=== PATIENT | male | born 1950 | race Caucasian/White ===

== ENCOUNTER → 2019-04-05 12:42 | Outpatient (CLI) | payer OTHER, SELFPAY ==
[2019-04-05 13:36] LABS: INR 4.3 (0.9-1.3); Prothrombin Time 51.6 SECONDS (10.1-12.7)
== END ==
PROVIDERS: Visit Provider Emergency Medicine
DX: I48.91 Unspecified atrial fibrillation (principal)
CPT/HCPCS: 36415; 85610

== ENCOUNTER → 2019-04-17 11:30 | Outpatient (CLI) | payer OTHER, SELFPAY ==
--- NOTE | 2019-04-17 11:33 | DI.RAD.S_ITS ---
PROCEDURE: XR LUMBAR SPINE 2-3V INDICATIONS: Lumbar pain x 2 days TECHNIQUE: 2 views of the lumbar spine were acquired. COMPARISON: None. FINDINGS: Bones: 5 [id number] vertebrae are present. 4 millimeter anterolisthesis of L4 and L5, likely related to facet arthrosis. There is mild multilevel disc height loss with marginal osteophyte formation, as well as facet arthrosis most apparent at L3-4, L4-5, and L5-S1. Soft tissues: Overlying bowel gas pattern is normal. Vascular calcification of the abdominal aorta. IMPRESSION: Multilevel lumbar spondylosis without findings of acute lumbar injury. 4 mm anterolisthesis of L4 on L5 likely secondary to hypertrophic facet arthrosis. Dictated by: Lucio Manning M.D. on 04/17/2019 at 12:02 Approved by: Lucio Manning M.D. on 04/17/2019 at 12:05
[2019-04-17 12:34] LABS: Add Manual Diff / Slide Review NO; Basophils Absolute Auto 0 /uL (0-100); Basophils Percent Auto 0.3 % (0-2); Eosinophils Absolute Auto 100 /uL (0-450); Eosinophils Percent Auto 0.6 % (2-4); Hematocrit 47.1 % (41-53); Hemoglobin 16.2 g/dL (13.5-17.5); Lymphocytes Absolute Auto 1600 /uL (1100-4500); Mean Corpuscular HGB Conc 34.5 % (30-36); Mean Corpuscular Hemoglobin 31.6 PG (26-34); Mean Corpuscular Volume 91.4 fL (80-100); Monocytes Absolute Auto 1500 /uL (0-900); Monocytes Percent Auto 13.7 % (3-14); Neutrophils Absolute Auto 7500 /uL (1500-7000); Neutrophils Percent Auto 70.4 % (50-75); Platelet Count 218 X10^3/uL (150-400); Red Blood Cell Count 5.15 X10^6/uL (4.5-5.9); Red Cell Distribution Width 13.8 % (11.6-14.8); White Blood Cell Count 10.7 X10^3/uL (4.5-11.0)
[2019-04-17 12:53] LABS: Carbon Dioxide 24 mmol/L (22-32); Sodium 137 mmol/L (137-145)
[2019-04-17 13:17] LABS: Alanine Aminotransferase 24 IU/L (21-72); Albumin 4.4 g/dL (3.5-5.0); Albumin Globulin Ratio 1.5 (1.0-2.8); Alkaline Phosphatase 66 U/L (38-126); Aspartate Aminotransferase 25 IU/L (17-59); BUN Creatinine Ratio 26.5 (6-22); Bilirubin Total 1.3 mg/dL (0.2-1.3); Blood Urea Nitrogen 45 mg/dL (9-20); C-Reactive Protein Quant 4.7 mg/dL (<1.0); Chloride 101 mmol/L (98-107); Glucose 113 mg/dL (80-110); Total Protein 7.4 g/dL (6.3-8.2); Uric Acid 6.3 mg/dL (3.5-8.5)
[2019-04-17 13:24] LABS: HEMOLYSIS < 15 (0-50); Potassium 5.2 mmol/L (3.4-5.1)
[2019-04-17 14:17] LABS: Erythrocyte Sedimentation Rate 6 MM/HR (0-15)
== END ==
PROVIDERS: Visit Provider Nurse Practitioner
DX: R53.83 Other fatigue (principal); M54.5 Low back pain
CPT/HCPCS: 36415; 72100; 80053; 84550; 85025; 85651; 86140

== ENCOUNTER → 2019-04-21 10:01 | Outpatient (CLI) | payer OTHER, SELFPAY ==
[2019-04-21 11:34] LABS: INR 4.2 (0.9-1.3); Prothrombin Time 50.3 SECONDS (10.1-12.7)
== END ==
PROVIDERS: Visit Provider Emergency Medicine
DX: I48.91 Unspecified atrial fibrillation (principal)
CPT/HCPCS: 36415; 85610

== ENCOUNTER → 2019-05-13 14:04 | Outpatient (CLI) | payer OTHER, SELFPAY ==
[2019-05-13 15:04] LABS: INR 2.6 (0.9-1.3); Prothrombin Time 30.7 SECONDS (10.1-12.7)
== END ==
PROVIDERS: Visit Provider Emergency Medicine
DX: I48.91 Unspecified atrial fibrillation (principal)
CPT/HCPCS: 36415; 85610

== ENCOUNTER → 2019-05-26 10:11 | Outpatient (CLI) | payer OTHER, SELFPAY ==
[2019-05-26 10:51] LABS: INR 1.8 (0.9-1.3); Prothrombin Time 21.1 SECONDS (10.1-12.7)
== END ==
PROVIDERS: Visit Provider Emergency Medicine
DX: I48.91 Unspecified atrial fibrillation (principal)
CPT/HCPCS: 36415; 85610

== ENCOUNTER → 2019-06-03 10:06 | Outpatient (CLI) | payer OTHER, SELFPAY | PROVIDERS: Visit Provider Emergency Medicine | DX: I48.91 Unspecified atrial fibrillation (principal) | CPT/HCPCS: 36415; 85610 ==

== ENCOUNTER → 2019-06-10 11:15 | Outpatient (CLI) | payer OTHER, SELFPAY ==
[2019-06-10 12:14] LABS: INR 2.7 (0.9-1.3); Prothrombin Time 32.1 SECONDS (10.1-12.7)
== END ==
PROVIDERS: Visit Provider Emergency Medicine
DX: I48.91 Unspecified atrial fibrillation (principal)
CPT/HCPCS: 36415; 85610

== ENCOUNTER → 2019-06-24 09:42 | Outpatient (CLI) | payer OTHER, SELFPAY ==
[2019-06-24 11:11] LABS: Prothrombin Time 34.7 SECONDS (10.1-12.7)
== END ==
PROVIDERS: Visit Provider Emergency Medicine
DX: I48.91 Unspecified atrial fibrillation (principal)
CPT/HCPCS: 36415; 85610

== ENCOUNTER → 2019-07-01 10:59 | Outpatient (CLI) | payer OTHER, SELFPAY ==
[2019-07-01 12:38] LABS: INR 3.6 (0.9-1.3); Prothrombin Time 42.2 SECONDS (10.1-12.7)
== END ==
PROVIDERS: Visit Provider Emergency Medicine
DX: I48.91 Unspecified atrial fibrillation (principal)
CPT/HCPCS: 36415; 85610

== ENCOUNTER → 2019-07-08 10:21 | Outpatient (CLI) | payer OTHER, SELFPAY ==
[2019-07-08 10:59] LABS: INR 3.2 (0.9-1.3); Prothrombin Time 37.6 SECONDS (10.1-12.7)
== END ==
PROVIDERS: Visit Provider Emergency Medicine
DX: I48.91 Unspecified atrial fibrillation (principal)
CPT/HCPCS: 36415; 85610

== ENCOUNTER → 2019-07-22 10:22 | Outpatient (CLI) | payer OTHER, SELFPAY ==
[2019-07-22 10:57] LABS: INR 2.3 (0.9-1.3); Prothrombin Time 26.8 SECONDS (10.1-12.7)
== END ==
PROVIDERS: Visit Provider Emergency Medicine
DX: I48.91 Unspecified atrial fibrillation (principal)
CPT/HCPCS: 36415; 85610

== ENCOUNTER → 2019-07-29 10:26 | Outpatient (CLI) | payer OTHER, SELFPAY ==
[2019-07-29 11:09] LABS: INR 2.6 (0.9-1.3); Prothrombin Time 30.8 SECONDS (10.1-12.7)
== END ==
PROVIDERS: Visit Provider Emergency Medicine
DX: I48.91 Unspecified atrial fibrillation (principal)
CPT/HCPCS: 36415; 85610

== ENCOUNTER → 2019-11-29 11:17 | Outpatient (CLI) | payer OTHER, SELFPAY ==
[2019-11-29 13:06] LABS: INR 3.5 (0.9-1.3); Prothrombin Time 40.5 SECONDS (10.1-12.7)
== END ==
PROVIDERS: Referring Provider Emergency Medicine; Visit Provider Emergency Medicine
DX: Q27.31 Arteriovenous malformation of vessel of upper limb (principal); I48.0 Paroxysmal atrial fibrillation
CPT/HCPCS: 36415; 85610

== ENCOUNTER → 2019-12-07 11:08 | Outpatient (CLI) | payer OTHER, SELFPAY ==
[2019-12-07 12:34] LABS: INR 3.4 (0.9-1.3); Prothrombin Time 38.9 SECONDS (10.1-12.7)
== END ==
PROVIDERS: Referring Provider Emergency Medicine; Visit Provider Emergency Medicine
DX: I48.91 Unspecified atrial fibrillation (principal)
CPT/HCPCS: 36415; 85610

== ENCOUNTER → 2019-12-14 09:51 | Outpatient (CLI) | payer OTHER, SELFPAY ==
[2019-12-14 11:52] LABS: Prothrombin Time 86.9 SECONDS (10.1-12.7)
[2019-12-14 12:08] LABS: INR 7.6 (0.9-1.3)
== END ==
PROVIDERS: Referring Provider Emergency Medicine; Visit Provider Emergency Medicine
DX: I48.91 Unspecified atrial fibrillation (principal)
CPT/HCPCS: 36415; 85610

== ENCOUNTER → 2019-12-15 11:53 | Outpatient (CLI) | payer OTHER, SELFPAY ==
[2019-12-15 12:43] LABS: Prothrombin Time 75.9 SECONDS (10.1-12.7)
[2019-12-15 12:51] LABS: INR 6.7 (0.9-1.3)
== END ==
PROVIDERS: Referring Provider Emergency Medicine; Visit Provider Emergency Medicine
DX: I48.91 Unspecified atrial fibrillation (principal)
CPT/HCPCS: 36415; 85610

== ENCOUNTER → 2019-12-21 08:17 | Outpatient (CLI) | payer OTHER, SELFPAY ==
[2019-12-21 09:49] LABS: Add Manual Diff / Slide Review NO; Basophils Absolute Auto 100 /uL (0-100); Basophils Percent Auto 1.2 % (0-2); Eosinophils Absolute Auto 200 /uL (0-450); Eosinophils Percent Auto 3.7 % (2-4); Hematocrit 42.3 % (41-53); Hemoglobin 14.4 g/dL (13.5-17.5); Lymphocytes Absolute Auto 1400 /uL (1100-4500); Lymphocytes Percent Auto 26.4 % (25-40); Mean Corpuscular Hemoglobin 31.4 PG (26-34); Mean Corpuscular Volume 92.5 fL (80-100); Monocytes Absolute Auto 600 /uL (0-900); Monocytes Percent Auto 11.5 % (3-14); Neutrophils Absolute Auto 3000 /uL (1500-7000); Neutrophils Percent Auto 57.2 % (50-75); Platelet Count 211 X10^3/uL (150-400); Red Blood Cell Count 4.57 X10^6/uL (4.5-5.9); Red Cell Distribution Width 15.1 % (11.6-14.8); White Blood Cell Count 5.2 X10^3/uL (4.5-11.0)
[2019-12-21 10:04] LABS: INR 2.5 (0.9-1.3); Prothrombin Time 28.1 SECONDS (10.1-12.7)
== END ==
PROVIDERS: Referring Provider Internal Medicine Clinical Cardiac Electrophysiology; Visit Provider Internal Medicine Clinical Cardiac Electrophysiology
DX: I48.91 Unspecified atrial fibrillation (principal)
CPT/HCPCS: 36415; 85025; 85610

== ENCOUNTER → 2020-01-05 08:52 | Outpatient (CLI) | payer OTHER, SELFPAY ==
[2020-01-05 10:00] LABS: Prothrombin Time 22.9 SECONDS (10.1-12.7)
== END ==
PROVIDERS: Referring Provider Emergency Medicine; Visit Provider Emergency Medicine
DX: I48.91 Unspecified atrial fibrillation (principal)
CPT/HCPCS: 36415; 85610

== ENCOUNTER → 2020-01-13 09:51 | Outpatient (CLI) | payer OTHER, SELFPAY ==
[2020-01-13 11:17] LABS: INR 2.9 (0.9-1.3); Prothrombin Time 33.6 SECONDS (10.1-12.7)
== END ==
PROVIDERS: Referring Provider Internal Medicine Clinical Cardiac Electrophysiology; Visit Provider Internal Medicine Clinical Cardiac Electrophysiology
DX: I48.91 Unspecified atrial fibrillation (principal)
CPT/HCPCS: 36415; 85610

== ENCOUNTER → 2020-01-25 08:37 | Outpatient (CLI) | payer OTHER, SELFPAY ==
[2020-01-25 10:13] LABS: INR 3.2 (0.9-1.3); Prothrombin Time 36.8 SECONDS (10.1-12.7)
== END ==
PROVIDERS: Referring Provider Internal Medicine Clinical Cardiac Electrophysiology; Visit Provider Internal Medicine Clinical Cardiac Electrophysiology
DX: I48.91 Unspecified atrial fibrillation (principal)
CPT/HCPCS: 36415; 85610

== ENCOUNTER → 2020-02-03 08:57 | Outpatient (CLI) | payer OTHER, SELFPAY ==
[2020-02-03 10:08] LABS: INR 2.5 (0.9-1.3); Prothrombin Time 28.3 SECONDS (10.1-12.7)
== END ==
PROVIDERS: Referring Provider Internal Medicine Clinical Cardiac Electrophysiology; Visit Provider Internal Medicine Clinical Cardiac Electrophysiology
DX: I48.91 Unspecified atrial fibrillation (principal)
CPT/HCPCS: 36415; 85610

== ENCOUNTER → 2020-03-08 08:19 | Outpatient (CLI) | payer OTHER, SELFPAY ==
[2020-03-08 09:25] LABS: INR 3.1 (0.9-1.3); Prothrombin Time 35.9 SECONDS (10.1-12.7)
== END ==
PROVIDERS: Referring Provider Emergency Medicine; Visit Provider Emergency Medicine
DX: I48.91 Unspecified atrial fibrillation (principal)
CPT/HCPCS: 36415; 85610

== ENCOUNTER → 2020-03-23 10:02 | Outpatient (CLI) | payer OTHER, SELFPAY ==
[2020-03-23 11:08] LABS: INR 3.9 (0.9-1.3); Prothrombin Time 45.1 SECONDS (10.1-12.7)
== END ==
PROVIDERS: Referring Provider Internal Medicine Clinical Cardiac Electrophysiology; Visit Provider Internal Medicine Clinical Cardiac Electrophysiology
DX: I48.91 Unspecified atrial fibrillation (principal)
CPT/HCPCS: 36415; 85610

== ENCOUNTER → 2020-04-13 09:23 | Outpatient (CLI) | payer OTHER, SELFPAY ==
[2020-04-13 10:20] LABS: INR 3.5 (0.9-1.3)
== END ==
PROVIDERS: Referring Provider Internal Medicine Clinical Cardiac Electrophysiology; Visit Provider Internal Medicine Clinical Cardiac Electrophysiology
DX: I48.91 Unspecified atrial fibrillation (principal)
CPT/HCPCS: 36415; 85610

== ENCOUNTER → 2020-05-04 10:25 | Outpatient (CLI) | payer OTHER, SELFPAY ==
[2020-05-04 11:28] LABS: INR 2.3 (0.9-1.3); Prothrombin Time 26.2 SECONDS (10.1-12.7)
== END ==
PROVIDERS: Referring Provider Emergency Medicine; Visit Provider Internal Medicine Clinical Cardiac Electrophysiology
DX: I48.91 Unspecified atrial fibrillation (principal)
CPT/HCPCS: 36415; 85610

== ENCOUNTER → 2020-06-09 09:42 | Outpatient (CLI) | payer OTHER, SELFPAY ==
[2020-06-09 10:46] LABS: INR 2.4 (0.9-1.3); Prothrombin Time 27.8 SECONDS (10.1-12.7)
== END ==
PROVIDERS: Referring Provider Internal Medicine Clinical Cardiac Electrophysiology; Visit Provider Internal Medicine Clinical Cardiac Electrophysiology
DX: I48.91 Unspecified atrial fibrillation (principal)
CPT/HCPCS: 36415; 85610

== ENCOUNTER → 2020-08-01 07:50 | Outpatient (CLI) | payer OTHER, SELFPAY ==
[2020-08-01 09:17] LABS: INR 3.1 (0.9-1.3); Prothrombin Time 35.5 SECONDS (10.1-12.7)
== END ==
PROVIDERS: Referring Provider Internal Medicine Clinical Cardiac Electrophysiology; Visit Provider Internal Medicine Clinical Cardiac Electrophysiology
DX: I48.91 Unspecified atrial fibrillation (principal)
CPT/HCPCS: 36415; 85610

== ENCOUNTER → 2020-08-17 10:42 | Outpatient (CLI) | payer OTHER, SELFPAY ==
[2020-08-22 14:08] LABS: INR 2.5 (0.9-1.3); Prothrombin Time 29.1 SECONDS (10.1-12.7)
== END ==
PROVIDERS: Referring Provider Internal Medicine Clinical Cardiac Electrophysiology; Visit Provider Internal Medicine Clinical Cardiac Electrophysiology
DX: I48.91 Unspecified atrial fibrillation (principal)
CPT/HCPCS: 36415; 85610

== ENCOUNTER → 2020-09-08 09:04 | Outpatient (CLI) | payer OTHER, SELFPAY ==
[2020-09-08 10:03] LABS: Prothrombin Time 33.2 SECONDS (10.1-12.7)
== END ==
PROVIDERS: Referring Provider Internal Medicine Clinical Cardiac Electrophysiology; Visit Provider Internal Medicine Clinical Cardiac Electrophysiology
DX: I48.91 Unspecified atrial fibrillation (principal)
CPT/HCPCS: 36415; 85610

== ENCOUNTER → 2021-03-06 09:31 | Outpatient (CLI) | payer OTHER, SELFPAY ==
[2021-03-06 10:35] LABS: INR 3.2 (0.9-1.3); Prothrombin Time 37.1 SECONDS (10.1-12.7)
== END ==
PROVIDERS: Referring Provider Internal Medicine Clinical Cardiac Electrophysiology; Visit Provider Internal Medicine Clinical Cardiac Electrophysiology
DX: I48.91 Unspecified atrial fibrillation (principal)
CPT/HCPCS: 36415; 85610

== ENCOUNTER → 2021-05-16 15:22 | Outpatient (CLI) | payer OTHER, SELFPAY ==
[2021-05-16 16:53] LABS: INR 2.9 (0.9-1.3); Prothrombin Time 34.2 SECONDS (10.1-12.7)
== END ==
PROVIDERS: Referring Provider Internal Medicine Clinical Cardiac Electrophysiology; Visit Provider Internal Medicine Clinical Cardiac Electrophysiology
DX: I48.91 Unspecified atrial fibrillation (principal)
CPT/HCPCS: 36415; 85610

== ENCOUNTER → 2021-07-12 08:55 | Outpatient (CLI) | payer OTHER, SELFPAY ==
[2021-07-12 11:45] LABS: INR 3.3 (0.9-1.3); Prothrombin Time 38.3 SECONDS (10.1-12.7)
== END ==
PROVIDERS: Referring Provider Internal Medicine Clinical Cardiac Electrophysiology; Visit Provider Internal Medicine Clinical Cardiac Electrophysiology
DX: I48.91 Unspecified atrial fibrillation (principal)
CPT/HCPCS: 36415; 85610

== ENCOUNTER → 2021-12-24 09:57 | Outpatient (CLI) | payer OTHER, SELFPAY ==
[2021-12-24 10:27] LABS: INR 3.2 (0.9-1.3); Prothrombin Time 36.7 SECONDS (10.1-12.7)
== END ==
PROVIDERS: Referring Provider Internal Medicine Clinical Cardiac Electrophysiology; Visit Provider Internal Medicine Clinical Cardiac Electrophysiology
DX: I48.91 Unspecified atrial fibrillation (principal)
CPT/HCPCS: 36415; 85610

== ENCOUNTER → 2022-01-11 09:27 | Outpatient (CLI) | payer OTHER, SELFPAY ==
[2022-01-11 09:53] LABS: INR 1.6 (0.9-1.3); Prothrombin Time 17.7 SECONDS (10.1-12.7)
== END ==
PROVIDERS: Referring Provider Internal Medicine Clinical Cardiac Electrophysiology; Visit Provider Internal Medicine Clinical Cardiac Electrophysiology
DX: I48.91 Unspecified atrial fibrillation (principal)
CPT/HCPCS: 36415; 85610

== ENCOUNTER → 2022-01-30 09:52 | Outpatient (CLI) | payer OTHER, SELFPAY ==
[2022-01-30 11:04] LABS: INR 3.7 (0.9-1.3); Prothrombin Time 42.7 SECONDS (10.1-12.7)
== END ==
PROVIDERS: Referring Provider Internal Medicine Clinical Cardiac Electrophysiology; Visit Provider Internal Medicine Clinical Cardiac Electrophysiology
DX: I48.91 Unspecified atrial fibrillation (principal)
CPT/HCPCS: 36415; 85610

== ENCOUNTER → 2022-03-12 10:33 | Outpatient (CLI) | payer OTHER, SELFPAY ==
[2022-03-12 12:19] LABS: INR 2.9 (0.9-1.3); Prothrombin Time 33.3 SECONDS (10.1-12.7)
== END ==
PROVIDERS: Referring Provider Internal Medicine Clinical Cardiac Electrophysiology; Visit Provider Internal Medicine Clinical Cardiac Electrophysiology
DX: I48.91 Unspecified atrial fibrillation (principal)
CPT/HCPCS: 36415; 85610

== ENCOUNTER → 2022-06-28 10:37 | Outpatient (CLI) | payer OTHER, SELFPAY ==
[2022-06-28 12:37] LABS: INR 2.3 (0.9-1.3); Prothrombin Time 26.7 SECONDS (10.1-12.7)
== END ==
PROVIDERS: Referring Provider Internal Medicine Clinical Cardiac Electrophysiology; Visit Provider Internal Medicine Clinical Cardiac Electrophysiology
DX: I48.91 Unspecified atrial fibrillation (principal)
CPT/HCPCS: 36415; 85610

== ENCOUNTER → 2022-07-05 12:38 | Outpatient (CLI) | payer OTHER, SELFPAY ==
[2022-07-05 14:11] LABS: INR 3.4 (0.9-1.3)
== END ==
PROVIDERS: Referring Provider Internal Medicine Clinical Cardiac Electrophysiology; Visit Provider Internal Medicine Clinical Cardiac Electrophysiology
DX: I48.91 Unspecified atrial fibrillation (principal)
CPT/HCPCS: 36415; 85610

== ENCOUNTER → 2022-07-17 10:16 | Outpatient (CLI) | payer OTHER, SELFPAY ==
[2022-07-17 10:48] LABS: INR 2.7 (0.9-1.3); Prothrombin Time 30.8 SECONDS (10.1-12.7)
== END ==
PROVIDERS: Referring Provider Internal Medicine Clinical Cardiac Electrophysiology; Visit Provider Internal Medicine Clinical Cardiac Electrophysiology
DX: I48.91 Unspecified atrial fibrillation (principal)
CPT/HCPCS: 36415; 85610

== ENCOUNTER → 2022-08-01 10:31 | Outpatient (CLI) | payer OTHER, SELFPAY ==
[2022-08-01 11:54] LABS: INR 2.3 (0.9-1.3); Prothrombin Time 26.1 SECONDS (10.1-12.7)
== END ==
PROVIDERS: Referring Provider Internal Medicine Clinical Cardiac Electrophysiology; Visit Provider Internal Medicine Clinical Cardiac Electrophysiology
DX: I48.91 Unspecified atrial fibrillation (principal)
CPT/HCPCS: 36415; 85610

== ENCOUNTER → 2022-08-21 16:20 | Outpatient (CLI) | payer OTHER, SELFPAY ==
[2022-08-21 17:11] LABS: INR 1.9 (0.9-1.3); Prothrombin Time 21.5 SECONDS (10.1-12.7)
== END ==
PROVIDERS: Referring Provider Internal Medicine Clinical Cardiac Electrophysiology; Visit Provider Internal Medicine Clinical Cardiac Electrophysiology
DX: I48.91 Unspecified atrial fibrillation (principal)
CPT/HCPCS: 36415; 85610

== ENCOUNTER → 2022-09-25 11:00 | Outpatient (CLI) | payer OTHER, SELFPAY ==
[2022-09-25 11:58] LABS: INR 3.2 (0.9-1.3); Prothrombin Time 36.9 SECONDS (10.1-12.7)
== END ==
PROVIDERS: PCP Family Medicine; Referring Provider Internal Medicine Clinical Cardiac Electrophysiology; Visit Provider Internal Medicine Clinical Cardiac Electrophysiology
DX: I48.91 Unspecified atrial fibrillation (principal)
CPT/HCPCS: 36415; 85610

== ENCOUNTER → 2022-10-10 11:39 | Outpatient (CLI) | payer OTHER, SELFPAY ==
[2022-10-10 13:18] LABS: INR 3.4 (0.9-1.3); Prothrombin Time 39.3 SECONDS (10.1-12.7)
== END ==
PROVIDERS: PCP Family Medicine; Referring Provider Internal Medicine Clinical Cardiac Electrophysiology; Visit Provider Internal Medicine Clinical Cardiac Electrophysiology
DX: I48.91 Unspecified atrial fibrillation (principal)
CPT/HCPCS: 36415; 85610

== ENCOUNTER → 2023-02-19 10:45 | Outpatient (CLI) | payer OTHER, SELFPAY ==
[2023-02-19 12:56] LABS: INR 3.1 (0.9-1.3); Prothrombin Time 35.8 SECONDS (10.1-12.7)
== END ==
PROVIDERS: PCP Family Medicine; Referring Provider Internal Medicine Clinical Cardiac Electrophysiology; Visit Provider Internal Medicine Clinical Cardiac Electrophysiology
DX: I48.91 Unspecified atrial fibrillation (principal)
CPT/HCPCS: 36415; 85610

== ENCOUNTER → 2023-04-16 16:24 | Outpatient (CLI) | payer OTHER, SELFPAY ==
--- NOTE | 2023-04-16 16:26 | DI.US.S_ITS ---
PROCEDURE: US PERIPH VENOUS LOW EXTREM LT INDICATIONS: LEFT CALF PAIN TECHNIQUE: Real-time imaging, as well as color and pulse Doppler interrogation, were performed of the lower extremity deep veins from the inguinal ligament to the popliteal fossa, with documentation of the visualized calf veins. COMPARISON: None. FINDINGS: The common femoral, femoral, popliteal, and the visualized calf veins are normally compressible, and free of intraluminal thrombus. Color and pulse Doppler demonstrate normal phasic intraluminal flow. There is normal augmentation response to distal compression maneuver. IMPRESSION: No findings of lower extremity deep venous thrombosis. Dictated by: Arnol Pineda M.D. on 04/16/2023 at 16:36 Approved by: Arnol Pineda M.D. on 04/16/2023 at 16:39
== END ==
PROVIDERS: PCP Family Medicine; Referring Provider Nurse Practitioner Family; Visit Provider Nurse Practitioner Family
DX: M79.662 Pain in left lower leg (principal)
CPT/HCPCS: 93971

== ENCOUNTER → 2023-07-01 12:05 | Outpatient (CLI) | payer OTHER, SELFPAY ==
[2023-07-01 12:54] LABS: INR 3.3 (0.9-1.3); Prothrombin Time 38.5 SECONDS (9.4-12.5)
== END ==
LOC: LAB 12:08
PROVIDERS: PCP Family Medicine; Referring Provider Internal Medicine Clinical Cardiac Electrophysiology; Visit Provider Internal Medicine Clinical Cardiac Electrophysiology
DX: I48.91 Unspecified atrial fibrillation (principal)
CPT/HCPCS: 36415; 85610

== ENCOUNTER → 2023-09-04 12:55 | Outpatient (CLI) | payer OTHER, SELFPAY ==
[2023-09-04 14:06] LABS: INR 1.5 (0.9-1.3); Prothrombin Time 17.3 SECONDS (9.4-12.5)
== END ==
PROVIDERS: PCP Family Medicine; Referring Provider Internal Medicine Clinical Cardiac Electrophysiology; Visit Provider Internal Medicine Clinical Cardiac Electrophysiology
DX: I48.91 Unspecified atrial fibrillation (principal)
CPT/HCPCS: 36415; 85610

== ENCOUNTER → 2023-09-18 09:44 | Outpatient (CLI) | payer OTHER, SELFPAY ==
[2023-09-18 11:00] LABS: INR 2.2 (0.9-1.3); Prothrombin Time 25.9 SECONDS (9.4-12.5)
== END ==
PROVIDERS: PCP Family Medicine; Referring Provider Internal Medicine Clinical Cardiac Electrophysiology; Visit Provider Internal Medicine Clinical Cardiac Electrophysiology
DX: I48.91 Unspecified atrial fibrillation (principal)
CPT/HCPCS: 36415; 85610

== ENCOUNTER → 2023-09-25 12:25 | Outpatient (CLI) | payer OTHER, SELFPAY ==
[2023-09-25 14:07] LABS: INR 2.6 (0.9-1.3); Prothrombin Time 29.9 SECONDS (9.4-12.5)
== END ==
LOC: LAB 12:26
PROVIDERS: PCP Family Medicine; Referring Provider Internal Medicine Clinical Cardiac Electrophysiology; Visit Provider Internal Medicine Clinical Cardiac Electrophysiology
DX: I48.91 Unspecified atrial fibrillation (principal)
CPT/HCPCS: 36415; 85610

== ENCOUNTER → 2024-02-16 16:05 | Outpatient (CLI) | payer OTHER, SELFPAY ==
[2024-02-16 17:27] LABS: Prothrombin Time 34.7 SECONDS (9.4-12.5)
== END ==
LOC: LAB 16:10
PROVIDERS: PCP Family Medicine; Referring Provider Internal Medicine Clinical Cardiac Electrophysiology; Visit Provider Internal Medicine Clinical Cardiac Electrophysiology
DX: I48.91 Unspecified atrial fibrillation (principal)
CPT/HCPCS: 36415; 85610